=== PATIENT | male | born 1950 | race Caucasian/White ===

== ENCOUNTER 2018-01-11 15:20 | Emergency (ER) | payer SELFPAY ==
--- NOTE | 2018-01-11 15:46 | EDPHY ---
H & P Time Seen by Provider: 01/11/18 15:36 HPI/ROS: HPI Swollen feet. 67-year-old male by private vehicle with his daughter. He complains of bilateral swelling of his feet since driving here from [place] on Friday. For he reports that he has not experienced this degree of swelling in the past. He denies any associated chest pain. No shortness of breath. No other complaints. There is no history of trauma. ROS: Constitutional: No fever, no chills. No weakness. Respiratory: No cough. No shortness of breath. Cardiac: No chest pain, no palpitations. Gastrointestinal: No abdominal pain, no vomiting, no diarrhea. Genitourinary: No hematuria. No dysuria or increased frequency with urination. Musculoskeletal: No back pain. No neck pain. No myalgias or arthralgias. Skin: No rashes. Neurological: No headache. No focal weakness or altered sensation. Past medical history: Pseudo gout, hypertension, arthritis, renal carcinoma, basal cell carcinoma. Social history: Nonsmoker. Here with his daughter. Denies alcohol. Visiting from [place]. Physical Exam: General Appearance: Alert, no distress. Moderately obese habitus. This patient is responding to questions appropriately and in full sentences. This patient appears well-hydrated and well-nourished. Eyes: Pupils equal and round no pallor or injection. No lid edema, erythema or injection. Respiratory: There are no retractions, lungs are clear to auscultation with good air movement bilaterally. Cardiovascular: Regular rate and rhythm. No murmur. Gastrointestinal: Abdomen is soft and nontender, no masses, bowel sounds normal. No focal tenderness at McBurney's point. No Rodriguez sign. Neurological: Motor sensory function is grossly intact. Cranial nerves are normal. Gait is normal. Skin: Warm and dry, no rashes. Musculoskeletal: Neck is supple and nontender. Extremities are symmetrical, with symmetrical nonpitting edema involving the feet and ankles and distal calf regions. All joints range without pain or impingement. Psychiatric: No agitation. No depression. Database: EKG: EKG time is 3:43 p.m.; EKG shows a narrow complex normal sinus rhythm with a ventricular rate of 83. The TN, QRS, QT intervals are within normal limits. There are no ST-T wave changes indicative of ischemic or injury pattern. No evidence of right heart strain. Interpreted by me. Imaging: Bilateral lower extremity ultrasounds: Negative for DVT. Results discussed with staff radiologist Dr. Maximiliano Egan. Chest x-ray PA and lateral; the cardiac mediastinal silhouette is unremarkable. No evidence of infiltrate or pneumothorax. No acute cardiopulmonary disease process noted. Interpreted by me. Procedures: Emergency department course: Vital signs reviewed. He is moderately hypertensive. Pulse oximetry at 91% on room air in triage. He does not appear in distress. EKG obtained and reviewed by myself. 4:40 p.m., the patient was re-evaluated. He is resting comfortably at this time. I discussed the results of his diagnostic workup in the emergency department with him and his daughter. He is traveling back to [facility] tomorrow morning and will see his primary care physician tomorrow afternoon or the next day. His primary care physician will call here to have his medical records transferred. At this time I feel he is safe for discharge. He feels comfortable going home with his daughter. Return to emergency department precautions were reviewed with the 2 of them thoroughly. All of their questions were answered. The patient was discharged home in good condition. Differential Diagnosis: The differential diagnosis on this patient includes but is not limited to dependent edema. Acute congestive heart failure, pulmonary embolism, DVT, acute coronary syndrome, hypoalbuminemia, anemia unlikely. This represents a partial list of diagnoses considered. These considerations are based on history , physical exam, past history, reassessment and diagnostic testing. Smoking Status: Never smoked Constitutional: Initial Vital Signs Temperature (C) 36.7 C 01/11/18 15:24 Heart Rate 96 01/11/18 15:24 Respiratory Rate 18 01/11/18 15:24 Blood Pressure 153/91 H 01/11/18 15:24 O2 Sat (%) 91 L 01/11/18 15:24 O2 Delivery Mode Room Air Allergies/Adverse Reactions: No Known Allergies Allergy (Unverified 01/11/18 15:24) Home Medications: Medication Instructions Recorded Lortab 10 mg-300 mg/15 ml Elxr 01/11/18 Ms Contin 01/11/18 amLODIPine BESYLATE 01/11/18 predniSONE 01/11/18 Medical Decision Making - Diagnostics Imaging Results: Imaging Impressions Extremity Venous Study 01/11/18 15:59 Impression: There is no sonographic evidence of deep or superficial venous thrombosis in either lower extremity. Findings were discussed with Nubia Boogie MD at 16:29, on 01/11/2018. - Data Points Laboratory Results: Laboratory Results 01/11/18 15:35 01/11/18 15:35 01/11/18 01/11/18 01/11/18 15:45 15:35 15:35 WBC 7.42 10^3/uL 10^3/uL (3.80-9.50) RBC 3.68 10^6/uL L 10^6/uL (4.40-6.38) Hgb 13.8 g/dL g/dL (13.7-17.5) Hct 40.0 % % (40.0-51.0) MCV 108.7 fL H fL (81.5-99.8) MCH 37.5 pg H pg (27.9-34.1) MCHC 34.5 g/dL g/dL (32.4-36.7) RDW 13.6 % % (11.5-15.2) Plt Count 261 10^3/uL 10^3/uL (150-400) MPV 9.6 fL fL (8.7-11.7) Neut % (Auto) 65.9 % % (39.3-74.2) Lymph % (Auto) 16.3 % % (15.0-45.0) [place] % (Auto) 15.2 % H % (4.5-13.0) Eos % (Auto) 1.5 % % (0.6-7.6) Baso % (Auto) 0.7 % % (0.3-1.7) Nucleat RBC Rel Count 0.0 % % (0.0-0.2) Absolute Neuts (auto) 4.89 10^3/uL 10^3/uL (1.70-6.50) Absolute Lymphs (auto) 1.21 10^3/uL 10^3/uL (1.00-3.00) Absolute Monos (auto) 1.13 10^3/uL H 10^3/uL (0.30-0.80) Absolute Eos (auto) 0.11 10^3/uL 10^3/uL (0.03-0.40) Absolute Basos (auto) 0.05 10^3/uL 10^3/uL (0.02-0.10) Absolute Nucleated RBC 0.00 10^3/uL 10^3/uL (0-0.01) Immature Gran % 0.4 % % (0.0-1.1) Immature Gran # 0.03 10^3/uL 10^3/uL (0.00-0.10) Sodium 136 mEq/L mEq/L (135-145) Potassium 4.9 mEq/L mEq/L (3.5-5.2) Chloride 101 mEq/L mEq/L (97-110) Carbon Dioxide 20 mEq/l L mEq/l (22-31) Anion Gap 15 mEq/L mEq/L (8-16) BUN 6 mg/dL L mg/dL (7-23) Creatinine 0.7 mg/dL mg/dL (0.7-1.3) Estimated GFR > 60 Glucose 95 mg/dL mg/dL (70-100) Calcium 8.6 mg/dL mg/dL (8.5-10.4) Total Bilirubin 1.1 mg/dL mg/dL (0.1-1.4) Conjugated Bilirubin 0.7 mg/dL H mg/dL (0.0-0.5) Unconjugated Bilirubin 0.4 mg/dL mg/dL (0.0-1.1) AST 76 IU/L H IU/L (17-59) ALT 49 IU/L IU/L (21-72) Alkaline Phosphatase 101 IU/L IU/L (38-126) Total Protein 7.6 g/dL g/dL (6.3-8.2) Albumin 3.6 g/dL g/dL (3.5-5.0) Urine Color YELLOW Urine Appearance CLEAR Urine pH 6.0 (5.0-7.5) Ur Specific [place] 1.006 (1.002-1.030) Urine Protein NEGATIVE (NEGATIVE) Urine Ketones NEGATIVE (NEGATIVE) Urine Blood NEGATIVE (NEGATIVE) Urine Nitrate NEGATIVE (NEGATIVE) Urine Bilirubin NEGATIVE (NEGATIVE) Urine Urobilinogen 2.0 EU H EU (0.2-1.0) Ur Leukocyte Esterase NEGATIVE (NEGATIVE) Urine RBC NONE SEEN /hpf /hpf (0-3) Urine WBC 1-3 /hpf /hpf (0-3) Ur Epithelial Cells NONE SEEN /lpf /lpf (NONE-1+) Urine Glucose NEGATIVE (NEGATIVE) Departure - Departure Disposition: Home, Routine, Self-Care Clinical Impression: Lower extremity edema Condition: Good Instructions: Leg Edema (ED) Additional Instructions: Read and follow provided instructions. Follow-up with your primary care physician in 1-2 days for re-evaluation in [place] as discussed. Have your primary care physician call here to obtain medical records. You can discuss being placed on a diuretic with her primary care physician. Avoid strenuous activity until you have been cleared by your primary care physician. Ibuprofen dosin mg every 6 hours with meals for the next 3 days only. Take only as needed for pain. Return to the emergency department for worsening symptoms, difficulty breathing , chest pain or other serious concerns. Referrals: NONE *PRIMARY CARE P,. [Primary Care Provider] - As per Instructions
[2018-01-11 15:48] LABS: PLATELET COUNT 261 10^3/uL (150-400)
--- NOTE | 2018-01-11 15:50 | CPEKG ---
Heart Rate: 83 RR Interval: 723 P-R Interval: 164 QRSD Interval: 86 QT Interval: 372 QTC Interval: 437 P [place]: 38 QRS [place]: 42 T Wave [place]: 53 EKG Severity - NORMAL ECG - EKG Impression: SINUS RHYTHM Electronically Signed By: Nubia Boogie 11-Jan-2018 15:52:48
[2018-01-11] MEDS ORDERED: TDAP ADULT 0.5 ML INJ (BOOSTRIX) IM ONE (16:12)
[2018-01-11 17:03] VITALS: BP 149/84
== END 2018-01-11 17:03 | disposition home or self-care (01) ==
LOC: EDBD 15:20
DX: R60.0 Localized edema (principal); I10 Essential (primary) hypertension; Z85.528 Personal history of other malignant neoplasm of kidney; Z85.828 Personal history of other malignant neoplasm of skin